=== PATIENT | female | born 1980 | race Caucasian/White ===

== ENCOUNTER 2024-01-08 03:48 | Emergency (ER) | payer MEDICAID ==
[~2024-01-08] VITALS: Ht 160 cm; Wt 63.0 kg
[2024-01-08] MEDS ORDERED: AMOX-494 MT (04:02)
[2024-01-08] MEDS ORDERED: IBUP-2029 MT (04:02)
[2024-01-08 04:03] VITALS: O2SAT 100
[2024-01-08 04:04] VITALS: BP 102/53; PULSE 72; RESP 20; TEMP 98.1; O2SAT 100
[2024-01-08] MEDS: IBUPROFEN 600MG TABLET PO ONE (04:21)
== END 2024-01-08 04:22 | disposition home or self-care (01) ==
LOC: ER 03:48
DX: K08.89 Other specified disorders of teeth and supporting structures (principal); R22.9 Localized swelling, mass and lump, unspecified; Z98.890 Other specified postprocedural states
CPT/HCPCS: 99283